=== PATIENT | male | born 1950 | race Caucasian/White ===

== ENCOUNTER 2021-12-03 10:02 | Outpatient (CLI) | payer MEDICARE, OTHER ==
[2021-12-03 23:58] LABS: SARS-CoV-2 PCR by NAA Not Detected (NotDetected)
== END 2021-12-03 10:03 | disposition home or self-care (01) ==
LOC: LABBT 10:02
PROVIDERS: ATTEND Neurological Surgery
DX: Z01.818 Encounter for other preprocedural examination (principal); M48.061 Spinal stenosis, lumbar region without neurogenic claudication; Z20.822 Contact with and (suspected) exposure to COVID-19
CPT/HCPCS: 93005; U0003; U0005; 93010

== ENCOUNTER 2021-12-08 06:57 | Day surgery (SDC) | payer MEDICARE, OTHER ==
[2021-12-03 13:04] VITALS: BMI 28.5
[2021-12-08] MEDS ORDERED: EPINEPHrine 1 MG/ML AMP ONE (08:26)
[2021-12-08] MEDS ORDERED: Thrombin 5000 UNITS/5 ML VIAL ONE (08:26)
[2021-12-08] MEDS ORDERED: Bupivacaine PF 0.5% 30 ML VIAL ONE (08:26)
[2021-12-08] MEDS ORDERED: Sodium Chloride 0.9% 100 ML ONE ×2 (08:52→12:58)
[2021-12-08] MEDS ORDERED: CEFAZOLIN 2 GM VIAL ONE ×2 (08:52→12:58)
[2021-12-08] MEDS ORDERED: fentaNYL Citrate/PF 100 MCG/2 ML SYRINGE ONE ×2 (08:54→11:35)
[2021-12-08] MEDS ORDERED: Ketorolac Tromethamine 30 MG/ML VIAL ONE (09:09)
[2021-12-08] MEDS ORDERED: Lidocaine 1% PF 5 ML VIAL ONE (09:09)
[2021-12-08] MEDS ORDERED: ePHEDrine 50 MG/ML VIAL ONE (09:09)
[2021-12-08] MEDS ORDERED: PROPOFOL 200 MG/20 ML VIAL ONE (09:09)
[2021-12-08] MEDS ORDERED: Ondansetron PF 4 MG/2 ML Vial ONE (09:09)
[2021-12-08] MEDS ORDERED: Dexamethasone 20 MG/5 ML VIAL ONE (09:09)
[2021-12-08] MEDS ORDERED: Glycopyrrolate 0.2 MG/ML 5 ML SYRINGE ONE (09:09)
[2021-12-08] MEDS ORDERED: Rocuronium Bromide 10 MG/ML (10ML VIAL) ONE (09:09)
[2021-12-08] MEDS ORDERED: PHENYLEPHRINE-NS 100 MCG/ML 10 ML SYRINGE ONE (09:09)
[2021-12-08] MEDS ORDERED: Tamsulosin HCl 0.4 MG CAP ONE (11:38)
[2021-12-08] MEDS ORDERED: Fentanyl 100 MCG/2 ML VIAL ONE (12:14)
== END 2021-12-08 14:11 | disposition home or self-care (01) ==
LOC: SDC 06:57
PROVIDERS: ATTEND Neurological Surgery
PROC: 0SG0071 Fusion of Lumbar Vertebral Joint with Autologous Tissue Substitute, Posterior Approach, Posterior Column, Open Approach (ICD-10-PCS; principal; 2021-12-08)
DX: M48.062 Spinal stenosis, lumbar region with neurogenic claudication (principal); M43.16 Spondylolisthesis, lumbar region; M54.16 Radiculopathy, lumbar region; I10 Essential (primary) hypertension; E78.5 Hyperlipidemia, unspecified; N40.0 Benign prostatic hyperplasia without lower urinary tract symptoms; Z79.899 Other long term (current) drug therapy
CPT/HCPCS: 76000; C1713; C1768; J0171; J1100; J1885; J2405; J2704; J3010; J3490; S0020